=== PATIENT | female | born 1995 | race American Indian/Alaskan Native ===

== ENCOUNTER 2019-04-22 22:35 | Emergency (ER) | payer BC ==
[2019-04-22] MEDS ORDERED: ZOFRAN IV ONE (23:21)
[2019-04-22] MEDS ORDERED: TORADOL IV ONE (23:21)
[2019-04-22 23:50] LABS: Basophils % (Auto) 0.4 % (0.0-1.8); Eosinophils # (Auto) 0.1 K/mm3 (0.0-0.4); Eosinophils % (Auto) 1.4 % (0.0-4.3); Hematocrit 37.9 % (30.3-42.9); Hemoglobin 12.3 gm/dl (10.1-14.3); Lymphocytes # (Auto) 2.8 K/mm3 (1.2-5.4); Lymphocytes % (Auto) 38.9 % (13.4-35.0); Mean Corpuscular HGB Conc 32 % (30-34); Mean Corpuscular Volume 96 fl (79-97); Monocytes # (Auto) 0.8 K/mm3 (0.0-0.8); Monocytes % (Auto) 10.7 % (0.0-7.3); Platelet Count 312 K/mm3 (140-440); Red Blood Count 3.95 M/mm3 (3.65-5.03); Red Cell Distribution Width 14.1 % (13.2-15.2)
[2019-04-22 23:59] LABS: Bilirubin,Urine NEG (Negative); Color,Urine Yellow (Yellow)
[2019-04-23] LABS: Blood,Urine NEG (Negative); Mucus,Urine 1+ /HPF; Protein,Urine <15 mg/dL mg/dL (Negative); Urobilinogen,Urine < 2.0 mg/dL (<2.0)
[2019-04-23 00:01] LABS: HCG Qualitative,Urine Negative (Negative)
[2019-04-23 00:09] LABS: Alanine Aminotransferase 11 units/L (7-56); Albumin 4.6 g/dL (3.9-5); BUN/Creatinine Ratio 22; Blood Urea Nitrogen 13 mg/dL (7-17); Hemolysis Index 10
--- NOTE | 2019-04-23 01:45 | Cat Scan Report ---
CT ABDOMEN AND PELVIS WITH CONTRAST HISTORY: RIGHT LOWER PELVIC PAIN FOR TWO DAYS. COMPARISON: None. TECHNIQUE: CT images of the abdomen and pelvis were obtained following administration of intravenous contrast. All CT scans at this location are performed using CT dose reduction for ALARA by means of automated exposure control. CONTRAST: 100 ml of intravenous contrast administered. FINDINGS: Lungs/bones: Lung bases are clear. There are old postoperative changes involving the posterior eleme nts of the thoracolumbar spine. No gross hardware complication identified. Abdomen/pelvis: There is mild streak artifact from the posterior spinal hardware. The liver, contracted gallbladder, spleen, pancreas, adrenals, kidneys, and proximal GI tract appear unremarkable. Urinary bladder is unremarkable. There is a functional left ovarian cyst measuring 1.9 cm on image 13 7 with small volume simple pelvic free fluid. Reproductive organs otherwise appear unremarkable. No a cute colonic abnormality identified. The appendix is normal. IMPRESSION: 1. Small functional left ovarian cyst likely physiologic pelvic free fluid. Otherwise nothing acute. Signer Name: Ayden Matthews MD Signed: 04/23/2019 1:41 AM Workstation Name: [id number]
--- NOTE | 2019-04-23 03:10 | Emergency Department Report ---
ED Abdominal Pain HPI - General Chief Complaint: Abdominal Pain Stated Complaint: PELVIC PAIN Time Seen by Provider: 04/22/19 23:15 Source: patient Mode of arrival: Ambulatory Limitations: No Limitations - History of Present Illness Initial Comments: Patient is a A1 23-year-old female who presents to the ED with complaint of acute onset persistent severe right lower quadrant pain for the last 1 week intermittently, but worse in the last 2 days. Patient states that the pain is worse with movement or palpation. Patient denies fever, chills, nausea, vomiting, diarrhea, dysuria, urinary frequency and urgency, hematuria, dyspareunia, vaginal discharge or flank pain and low back, dizziness, cough, chest pain or vaginal bleeding and sore throat. MD Complaint: abdominal pain (RLQ area; suprapubic) -: Sudden, week(s) (1) Location: RLQ, suprapubic Radiation: RLQ, suprapubic Migration to: no migration Severity: moderate, severe Severity scale (0 -10): 4 Quality: cramping, aching, sharp Consistency: intermittent Improves With: nothing Worsens With: movement Associated Symptoms: denies other symptoms, nausea. denies: vomiting, diarrhea, fever, chills, dysuria, hematemesis, hematochezia, melena, hematuria, anorexia, syncope - Related Data LMP (females 10-50): this week Previous Rx's Medication Instructions Recorded Last Taken Type Fluconazole [Diflucan TAB] 150 mg PO ONCE #1 tablet 04/23/19 Unknown Rx Ketorolac [Toradol] 10 mg PO Q8H PRN #20 tablet 04/23/19 Unknown Rx Ondansetron [Zofran Odt] 4 mg PO Q8HR PRN #15 tab.rapdis 04/23/19 Unknown Rx cephALEXin [Keflex] 500 mg PO Q6HR #40 capsule 04/23/19 Unknown Rx traMADol [Ultram] 50 mg PO Q6HR PRN #12 tablet 04/23/19 Unknown Rx Allergies Allergy/AdvReac Type Severity Reaction Status Date / Time azithromycin [From Zithromax] Allergy Hives Verified 04/22/19 22:44 ED Review of Systems ROS: Stated complaint: PELVIC PAIN Other details as noted in HPI Constitutional: denies: chills, fever Eyes: denies: eye pain, eye discharge, vision change ENT: denies: ear pain, throat pain Respiratory: denies: cough, shortness of breath, wheezing Cardiovascular: denies: chest pain, palpitations Endocrine: no symptoms reported Gastrointestinal: abdominal pain (RLQ pain). denies: nausea, vomiting, diarrhea, hematemesis, hematochezia Genitourinary: denies: urgency, dysuria, discharge Musculoskeletal: denies: back pain, joint swelling, arthralgia Skin: denies: rash, lesions Neurological: denies: headache, weakness, paresthesias Psychiatric: denies: anxiety, depression Hematological/Lymphatic: denies: easy bleeding, easy bruising ED Past Medical Hx - Past Medical History Additional medical history: Histoplasmosis, Scoliosis - Surgical History Past Surgical History?: Yes Additional Surgical History: Spinal Fusion - Social History Smoking Status: Never Smoker Substance Use Type: None - Medications Home Medications: Home Medications Medication Instructions Recorded Confirmed Last Taken Type Fluconazole [Diflucan TAB] 150 mg PO ONCE #1 tablet 04/23/19 Unknown Rx Ketorolac [Toradol] 10 mg PO Q8H PRN #20 tablet 04/23/19 Unknown Rx Ondansetron [Zofran Odt] 4 mg PO Q8HR PRN #15 tab.rapdis 04/23/19 Unknown Rx cephALEXin [Keflex] 500 mg PO Q6HR #40 capsule 04/23/19 Unknown Rx traMADol [Ultram] 50 mg PO Q6HR PRN #12 tablet 04/23/19 Unknown Rx ED Physical Exam - General Limitations: No Limitations General appearance: alert, in no apparent distress - Head Head exam: Present: atraumatic, normocephalic - Eye Eye exam: Present: normal appearance, PERRL, EOMI. Absent: scleral icterus, conjunctival injection Pupils: Present: normal accommodation - ENT ENT exam: Present: normal exam, normal orophraynx, mucous membranes moist, TM's normal bilaterally, normal external ear exam - Neck Neck exam: Present: normal inspection, full ROM. Absent: tenderness, lymphadenopathy - Respiratory Respiratory exam: Present: normal lung sounds bilaterally. Absent: respiratory distress, wheezes, rales, stridor, chest wall tenderness, accessory muscle use - Cardiovascular Cardiovascular Exam: Present: regular rate, normal rhythm, normal heart sounds. Absent: systolic murmur, diastolic murmur, rubs, gallop - GI/Abdominal GI/Abdominal exam: Present: soft, tenderness (RLQ tenderness), normal bowel sounds. Absent: guarding, rebound, hyperactive bowel sounds, hypoactive bowel sounds, organomegaly, bruit - Rectal Rectal exam: Present: deferred - Bi-manual exam: Present: other (deferred, patient choice) - Extremities Exam Extremities exam: Present: normal inspection, full ROM, normal capillary refill - Back Exam Back exam: Present: normal inspection, full ROM. Absent: tenderness, CVA tenderness (R), CVA tenderness (L), muscle spasm, paraspinal tenderness, vertebral tenderness - Neurological Exam Neurological exam: Present: alert, oriented X3, CN II-XII intact, normal gait, reflexes normal - Psychiatric Psychiatric exam: Present: normal affect, normal mood - Skin Skin exam: Present: warm, dry, intact, normal color. Absent: rash ED Course Vital Signs 04/22/19 04/23/19 04/23/19 22:38 00:02 04:01 Temperature 98.7 F 98 F Pulse Rate 75 76 Respiratory 18 20 20 Rate Blood Pressure 106/69 Blood Pressure 112/76 [Left] O2 Sat by Pulse 100 100 Oximetry - Reevaluation(s) Reevaluation #1: 04/25/19 06:53 This is a 23-year-old female who presents to the ED with acute onset of right lower quadrant pain for one week. In the ED, patient is alert and oriented 3 and is not in distress. Lab test results are reviewed and are all unremarkable except urinalysis that shows significant urinary tract infection. Abdomen pelvis CT scan with contrast shows clear Lung bases and there are old postoperative changes involving the posterior elements of the thoracolumbar spine. No gross hardware complication identified. The abdomen / pelvis shows mild streak artifact from the posterior spinal hardware. The liver, contracted gallbladder, spleen, pancreas, adrenals, kidneys, and proximal GI tract appear unremarkable. The urinary bladder is unremarkable. There is a functional left ovarian cyst measuring 1.9 cm with small volume simple pelvic free fluid. Repro ductive organs otherwise appear unremarkable. No acute colonic abnormality identified. The appendix is normal. The patient was treated for pain in the ED and on reevaluation, patient's pain is well controlled with medications. Patient was discharged home on antibiotics for acute urinary tract infection and advised to follow up with her [employer] physician in 5-7 days for reevaluation or return to the ED immediately if symptoms get worse. ED Medical Decision Making - Lab Data Result diagrams: 04/22/19 23:37 04/22/19 23:37 - Radiology Data Radiology results: report reviewed, image reviewed Findings [facility] [address] [place] [address] Cat Scan Report Signed Patient: PRATIK KIM MR #: [id number] : 1995 Acct:[id number] Age/Sex: 23 / F ADM Date: 04/22/19 Loc: ED Attending Dr: Ordering Physician: SANDI GROSS Date of Service: 04/22/19 Procedure(s): CT abdomen pelvis w con Accession Number(s): [id number] cc: SANDI GROSS CT ABDOMEN AND PELVIS WITH CONTRAST HISTORY: RIGHT LOWER PELVIC PAIN FOR TWO DAYS. COMPARISON: None. TECHNIQUE: CT images of the abdomen and pelvis were obtained following administration of intravenous contrast. All CT scans at this location are performed using CT dose reduction for ALARA by means of automated exposure control. CONTRAST: 100 ml of intravenous contrast administered. FINDINGS: Lungs/bones: Lung bases are clear. There are old postoperative changes involving the posterior elements of the thoracolumbar spine. No gross hardware complication identified. Abdomen/pelvis: There is mild streak artifact from the posterior spinal hardware. The liver, contracted gallbladder, spleen, pancreas, adrenals, kidneys, and proximal GI tract appear unremarkable. Urinary bladder is unremarkable. There is a functional left ovarian cyst measuring 1.9 cm on image 137 with small volume simple pelvic free fluid. Reproductive organs otherwise appear unremarkable. No acute colonic abnormality identified. The appendix is normal. IMPRESSION: 1. Small functional left ovarian cyst likely physiologic pelvic free fluid. Otherwise nothing acute. Signer Name: Ayden Matthews MD Signed: 04/23/2019 1:41 AM Workstation Name: [id number] Transcribed By: YENI Dictated By: Ayden Matthews MD Electronically Authenticated By: Ayden Matthews MD Signed Date/Time: 04/23/19 0141 - Medical Decision Making This is a 23-year-old female who presents to the ED with acute onset of right lower quadrant pain for one week. In the ED, patient is alert and oriented 3 and is not in distress. Lab test results are reviewed and are all unremarkable except urinalysis that shows significant urinary tract infection. Abdomen pelvis CT scan with contrast shows clear Lung bases and there are old postoperative changes involving the posterior elements of the thoracolumbar spine. No gross hardware complication identified. The abdomen / pelvis shows mild streak artifact from the posterior spinal hardware. The liver, contracted gallbladder, spleen, pancreas, adrenals, kidneys, and proximal GI tract appear unremarkable. The urinary bladder is unremarkable. There is a functional left ovarian cyst measuring 1.9 cm with small volume simple pelvic free fluid. Reproductive organs otherwise appear unremarkable. No acute colonic abnormality identified. The appendix is normal. The patient was treated for pain in the ED and on reevaluation, patient's pain is well controlled with medications. Patient was discharged home on antibiotics for acute urinary tract infection and advised to follow up with her [employer] physician in 5-7 days for reevaluation or return to the ED immediately if symptoms get worse. - Differential Diagnosis Abdominal pain; appendicitis, ovarian cyst; acute PID; UTI Critical care attestation.: If time is entered above; I have spent that time in minutes in the direct care of this critically ill patient, excluding procedure time. ED Disposition Clinical Impression: Acute abdominal pain in right lower quadrant, Acute urinary tract infection, Left ovarian cyst Disposition: DC-01 TO HOME OR SELFCARE Is pt being admited?: No Does the pt Need Aspirin: No Condition: Stable Instructions: Ovarian Cyst (ED), Urinary Tract Infection in Women (ED), Abdominal Pain (ED) Additional Instructions: Take medications with food, drink plenty of fluids and follow-up with your primary care physician in 7-10 days for reevaluation. Return to the ED imme diately if symptoms get worse. Prescriptions: Fluconazole [Diflucan TAB] 150 mg PO ONCE #1 tablet cephALEXin [Keflex] 500 mg PO Q6HR #40 capsule Ketorolac [Toradol] 10 mg PO Q8H PRN #20 tablet PRN Reason: Pain traMADol [Ultram] 50 mg PO Q6HR PRN #12 tablet PRN Reason: Pain Ondansetron [Zofran Odt] 4 mg PO Q8HR PRN #15 tab.rapdis PRN Reason: Nausea Referrals: CASSANDRA THOMAS MD [Primary Care Provider] - 3-5 Days Time of Disposition: 03:08 Print Language: VENEZUELAN
[2019-04-23 04:02] VITALS: BP 112/76
== END 2019-04-23 04:02 | disposition home or self-care (01) ==
LOC: ED 22:35
DX: N39.0 Urinary tract infection, site not specified (principal); N83.202 Unspecified ovarian cyst, left side; Z88.1 Allergy status to other antibiotic agents; Z79.899 Other long term (current) drug therapy
CPT/HCPCS: 36415; 74177; 80053; 81001; 81025; 83690; 85025; 87086; 96374; 96375; 99284; J1885; J2405; Q9967

== ENCOUNTER 2019-07-16 01:01 | Emergency (ER) | payer BC ==
--- NOTE | 2019-07-16 02:13 | XRay Report ---
CHEST 2 VIEWS INDICATION / CLINICAL INFORMATION: Chest pain. COMPARISON: None available. FINDINGS: SUPPORT DEVICES: None. HEART / MEDIASTINUM: Heart is normal size. Calcified lymph nodes in the right paratracheal region are characteristic of old granulomatous disease. LUNGS / PLEURA: No significant pulmonary or pleural abnormality. No pneumothorax. ADDITIONAL FINDINGS: No significant additional findings. IMPRESSION: 1. No acute findings. Signer Name: Vidya Shepard MD Signed: 07/16/2019 2:09 AM Workstation Name: [email or web address]
[2019-07-16 06:14] VITALS: BP 109/73
== END 2019-07-16 06:00 | disposition left against medical advice (07) ==
LOC: ED 01:01
DX: R07.89 Other chest pain (principal); Z53.21 Procedure and treatment not carried out due to patient leaving prior to being seen by health care provider
CPT/HCPCS: 71046; 93005; 93010